=== PATIENT | female | born 1965 | race Asian ===

== ENCOUNTER → 2020-05-30 | Outpatient (CLI) | payer BC | END | disposition home or self-care (01) | LOC: RAH 07:49 | PROVIDERS: ATTEND Physical Medicine & Rehabilitation | DX: M50.221 Other cervical disc displacement at C4-C5 level (principal); M75.01 Adhesive capsulitis of right shoulder; M47.22 Other spondylosis with radiculopathy, cervical region | CPT/HCPCS: 72141; 73221 ==